=== PATIENT | male | born 1990 | race African-American/Black ===

== ENCOUNTER 2016-09-27 19:18 | Emergency (ER) | payer SELFPAY ==
[~2016-09-27] VITALS: Ht 180.3 cm; Wt 72.0 kg
[2016-09-27] MEDS ORDERED: AZITHROMYCIN 500 MG TABLET PO ONE (21:15)
[2016-09-27] MEDS ORDERED: CEFTRIAXONE SODIUM 250 MG/VIAL IM ONE (21:15)
[2016-09-27 21:59] LABS: CLARITY URINE CLEAR (CLEAR); COLOR URINE YELLOW (YELLOW); GLUCOSE URINE NEGATIVE (NEGATIVE); KETONES URINE NEGATIVE (NEGATIVE); LEUKOCYTE ESTERASE URINE 1+ (NEGATIVE); NITRITE URINE NEGATIVE (NEGATIVE); OCCULT BLOOD URINE NEGATIVE (NEGATIVE); PH URINE 5.5 (4.5-8.0); PROTEIN URINE 1+ (NEGATIVE); SPECIFIC GRAVITY URINE 1.034 (1.005-1.030)
[2016-09-27 23:00] VITALS: BP 127/75
[2016-10-01 04:08] LABS: CHLAMYDIA TRACHOMATIS NAA Positive (Negative); NEISSERIA GONORRHOEAE NAA Negative (Negative)
== END 2016-09-27 23:35 | disposition home or self-care (01) ==
LOC: ER 19:18
DX: N39.0 Urinary tract infection, site not specified (principal); Z20.2 Contact with and (suspected) exposure to infections with a predominantly sexual mode of transmission
CPT/HCPCS: 81001; 87491; 87591; 96372; 99284; J0696; Z7610

== ENCOUNTER 2017-02-01 12:34 | Emergency (ER) | payer MEDICAID ==
[~2017-02-01] VITALS: Ht 180.3 cm; Wt 72.0 kg
[2017-02-01 13:35] VITALS: BP 106/80
[2017-02-01] MEDS ORDERED: IBUPROFEN 400MG TABLET PO ONE (14:15)
== END 2017-02-01 15:20 | disposition home or self-care (01) ==
LOC: ER 12:49
DX: J06.9 Acute upper respiratory infection, unspecified (principal); H92.09 Otalgia, unspecified ear; F17.200 Nicotine dependence, unspecified, uncomplicated
CPT/HCPCS: 99282

== ENCOUNTER 2017-05-15 08:42 | Emergency (ER) | payer SELFPAY ==
[~2017-05-15] VITALS: Ht 180.3 cm; Wt 68.0 kg
[2017-05-15 12:37] VITALS: BP 111/57
== END 2017-05-15 12:39 | disposition home or self-care (01) ==
LOC: ER 09:56
DX: H61.23 Impacted cerumen, bilateral (principal); H92.02 Otalgia, left ear; S00.412A Abrasion of left ear, initial encounter; F12.10 Cannabis abuse, uncomplicated; X58.XXXA Exposure to other specified factors, initial encounter; Y93.89 Activity, other specified; Y92.018 Other place in single-family (private) house as the place of occurrence of the external cause
CPT/HCPCS: 99282